=== PATIENT | female | born 1955 | race Caucasian/White ===

== ENCOUNTER 2024-09-06 13:00 | Outpatient (RCR) | payer MEDICARE, SELFPAY | END 2024-09-06 23:59 | disposition home or self-care (01) | LOC: PT 13:00 | PROVIDERS: Visit Provider Orthopaedic Surgery | DX: M25.562 Pain in left knee (principal); Z96.652 Presence of left artificial knee joint; Z98.890 Other specified postprocedural states | CPT/HCPCS: 97014; 97016; 97110; 97140; 97163; G0283 ==

== ENCOUNTER 2025-03-24 15:00 | Outpatient (RCR) | payer MEDICARE, SELFPAY | END 2025-04-02 23:59 | disposition home or self-care (01) | LOC: PT 15:00 | PROVIDERS: Visit Provider Orthopaedic Surgery | DX: Z47.89 Encounter for other orthopedic aftercare (principal); Z96.659 Presence of unspecified artificial knee joint | CPT/HCPCS: 97110; 97140; 97163 ==